=== PATIENT | male | born 1970 | race Caucasian/White ===

== ENCOUNTER 2018-04-26 16:31 | Outpatient (CLI) | payer OTHER, SELFPAY ==
--- NOTE | 2018-04-26 16:56 | RAD ---
CHEST TWO VIEWS: 04/26/18 HISTORY: Dyspnea. Cough and congestion. FINDINGS: The cardiac silhouette is enlarged. Pulmonary vasculature upper limits of normal. Mediastinum midline . No lobar consolidation or evidence of pneumothorax. IMPRESSION: Cardiomegaly. Borderline pulmonary vascular congestion. POS: [facility]
== END 2018-04-26 16:32 | disposition home or self-care (01) ==
LOC: MADRAD 16:31
PROVIDERS: ATTEND Family Medicine
DX: J45.909 Unspecified asthma, uncomplicated (principal); I51.7 Cardiomegaly; R09.89 Other specified symptoms and signs involving the circulatory and respiratory systems
CPT/HCPCS: 71046

== ENCOUNTER 2020-08-31 19:22 | Emergency (ER) | payer SELFPAY ==
[~2020-08-31 19:22] MED LIST: Iopamidol 370 76% 100 ML VIAL ONE
[2020-08-31] MEDS ORDERED: Sodium Chloride 0.9% 1,000 ML ONE (20:13)
[2020-08-31] MEDS ORDERED: Pantoprazole 40 MG VIAL ONE (20:13)
[2020-08-31] MEDS ORDERED: Ondansetron PF 4 MG/2 ML Vial ONE (20:13)
[2020-08-31 20:15] LABS: Bilirubin Negative (Negative); Blood, Urine Negative (Negative); Clarity Clear (Clear); Glucose, Urine (Dipstick) Negative (Negative); Ketone, Urine Negative (Negative); Leukocyte Negative (Negative); Nitrite Negative (Negative); Protein, Urine (Dipstick) 100 mg/dL (Neg-Trace); Urobilinogen 0.2 mg/dL (Less than 2)
[2020-08-31 20:17] LABS: #Basophils 0.2 thou/uL (0.0-0.2); #Monocytes 1.4 thou/uL (0.11-0.59); #Neutrophils 12.3 thou/uL (1.40-6.50); %Basophils 1.2 % (0.0-1.0); %Eosinophils 0.2 % (0.0-10.0); %Lymphocytes 17.7 % (21.0-51.0); %Monocytes 8.1 % (0.0-10.0); %Neutrophils 72.9 % (42.0-75.0); Hemoglobin 12.5 g/dL (14.0-18.0); Mean Corpuscular Hemoglobin 28.8 pg (27.0-31.0); Mean Corpuscular Volume 92.9 fL (78.0-98.0); Mean Platelet Volume 6.4 fL (7.4-10.4); Platelet Count 355 thou/uL (130-400); RBC Distribution Width 13.4 % (11.5-14.5); Red Blood Cell (RBC) Count 4.35 mill/uL (4.70-6.10); White Blood Cell (WBC) Count 16.9 thou/uL (4.8-10.8)
--- NOTE | 2020-08-31 20:17 | RAD ---
RADIOGRAPH CHEST 1 VIEW: 08/31/20 at 8:09 p.m. HISTORY: 49-year-old male with chest pain. FINDINGS: There is cardiomegaly. There is no evidence of air space density, pulmonary edema, or pneumothorax. T he lateral costophrenic angles are sharp. IMPRESSION: 1) No acute pulmonary findings. 2) Cardiomegaly without congestive heart failure. [email or web address] [] POS: [facility]
[2020-08-31 20:18] LABS: Specific Gravity, Urine 1.028 (1.002-1.036)
[2020-08-31 20:20] LABS: RBC/HPF None Seen HPF (0-3); WBC/HPF 0-3 HPF (0-3)
[2020-08-31 20:21] LABS: Bacteria/HPF Rare-Few HPF (None Seen); Mucous/LPF 1+ LPF (<2+)
[2020-08-31 20:33] LABS: ALT (SGPT) 40 U/L (8-55); AST (SGOT) 32 U/L (5-34); Albumin 3.9 g/dL (3.5-5.0); Alkaline Phosphatase 49 U/L (40-110); Anion Gap 15 mmol/L (10-20); BUN (Urea Nitrogen) 24 mg/dL (8.9-20.6); Bilirubin, Total 0.9 mg/dL (0.2-1.2); CK (CPK) 296 U/L (30-200); Calc. Creatinine Clearance 0 mL/min (70-130); Calcium 8.8 mg/dL (7.8-10.44); Carbon Dioxide 24 mmol/L (22-29); Chloride 105 mmol/L (98-107); Estimated GFR-MDRD 53; Globulin 2.6 g/dL (2.4-3.5); Glucose 102 mg/dL (70-105); Lipase 79 U/L (8-78); Potassium 4.2 mmol/L (3.5-5.1); Protein, Total 6.5 g/dL (6.0-8.3); Sodium 140 mmol/L (136-145)
[2020-08-31 20:52] LABS: CKMB 3.2 ng/mL (0-6.6)
--- NOTE | 2020-08-31 21:20 | CT ---
CT ABDOMEN AND PELVIS WITH IV CONTRAST: 08/31/20 HISTORY: Abdominal pain. FINDINGS: The lung bases are unremarkable. The liver, spleen, pancreas, adrenal glands are normal. No calcifi ed gallstones are seen. There is a tiny nonobstructing right renal calculus. There are patchy areas of decreased attenuation in the left renal cortex with adjacent perinephric inflammatory changes. No hydroureteronephrosis see n on either side. No free air, free fluid or lymphadenopathy is seen in the abdomen or pelvis. The small bowel loops ar e not abnormally dilated. A normal appearing appendix is present. The aorta is of normal caliber. The re are degenerative changes in the spine. there are small bilateral fat containing inguinal hernia. IMPRESSION: 1. Findings are suggestive of left sided pyelonephritis. Correlation with urinalysis is recommen ded. A follow-up exam is recommended after a course of antibiotics to exclude underlying mass. 2. Nonobstructing tiny right renal calculus. POS: [facility]
[2020-08-31] MEDS ORDERED: Aspirin Chewable 81 MG TAB ONE (21:47)
[2020-08-31] MEDS ORDERED: cefTRIAXone\\ROCEPHIN 2 GM VIAL ONE (21:47)
[2020-08-31] MEDS ORDERED: Sodium Chloride 0.9% 100 ML ONE (21:47)
[2020-08-31 22:22] LABS: Troponin I 0.033 ng/mL (< 0.028)
== END 2020-08-31 23:41 | disposition home or self-care (01) ==
LOC: MADERS 19:22
DX: N12 Tubulo-interstitial nephritis, not specified as acute or chronic (principal); I50.9 Heart failure, unspecified; M10.9 Gout, unspecified
CPT/HCPCS: 71045; 74177; 80053; 81003; 81015; 82150; 82550; 82553; 83690; 84484; 85025; 86140; 93005; 96365; 96375; C9113; J0696; J2405; J3490; J7050; Q9967

== ENCOUNTER 2021-01-08 17:49 | Emergency (ER) | payer OTHER, SELFPAY ==
[2021-01-08 18:44] LABS: #Basophils 0.2 thou/uL (0.0-0.2); #Eosinphils 0.1 thou/uL (0.0-0.7); #Lymphocytes 1.7 thou/uL (1.20-3.40); #Monocytes 0.8 thou/uL (0.11-0.59); #Neutrophils 4.9 thou/uL (1.40-6.50); %Basophils 2.5 % (0.0-1.0); %Eosinophils 1.3 % (0.0-10.0); %Lymphocytes 22.8 % (21.0-51.0); %Monocytes 9.8 % (0.0-10.0); %Neutrophils 63.7 % (42.0-75.0); Hemoglobin 12.2 g/dL (14.0-18.0); Mean Corpuscular HGB CONC 31.4 g/dL (32.0-36.0); Mean Corpuscular Hemoglobin 28.4 pg (27.0-31.0); Mean Corpuscular Volume 90.5 fL (78.0-98.0); Platelet Count 359 thou/uL (130-400); RBC Distribution Width 14.5 % (11.5-14.5); White Blood Cell (WBC) Count 7.6 thou/uL (4.8-10.8)
[2021-01-08 19:05] LABS: ALT (SGPT) 18 U/L (8-55); AST (SGOT) 20 U/L (5-34); Albumin 3.9 g/dL (3.5-5.0); Alkaline Phosphatase 52 U/L (40-110); Anion Gap 13 mmol/L (10-20); BUN (Urea Nitrogen) 17 mg/dL (8.4-25.7); Bilirubin, Total 1.7 mg/dL (0.2-1.2); CK (CPK) 528 U/L (30-200); Calc. Creatinine Clearance 0 mL/min (70-130); Calcium 8.5 mg/dL (7.8-10.44); Carbon Dioxide 23 mmol/L (22-29); Chloride 110 mmol/L (98-107); Globulin 2.9 g/dL (2.4-3.5); Glucose 76 mg/dL (70-105); Lipase 43 U/L (8-78); Potassium 4.5 mmol/L (3.5-5.1); Protein, Total 6.8 g/dL (6.0-8.3); Sodium 141 mmol/L (136-145)
[2021-01-08 19:25] LABS: CKMB 3.6 ng/mL (0-6.6)
[2021-01-08 19:44] LABS: Bilirubin Small (Negative); Blood, Urine Negative (Negative); Clarity Slightly Cloudy (Clear); Glucose, Urine (Dipstick) Negative (Negative); Ketone, Urine Negative (Negative); Leukocyte Negative (Negative); Nitrite Negative (Negative); Protein, Urine (Dipstick) Trace mg/dL (Neg-Trace); Urobilinogen 0.2 mg/dL (Less than 2)
[2021-01-08 19:46] LABS: Specific Gravity, Urine 1.027 (1.002-1.036)
[2021-01-08] MEDS ORDERED: Lidocaine Viscous Sol 2% 15 ml UD Cup ONE (21:38)
[2021-01-08] MEDS ORDERED: Mag-Al Plus 1200 MG/1200 MG/120 MG/30 ML UDCUP ONE (21:38)
== END 2021-01-08 22:00 | disposition home or self-care (01) ==
LOC: MADERS 17:49
DX: R10.9 Unspecified abdominal pain (principal); R53.83 Other fatigue; R05 Cough; R06.00 Dyspnea, unspecified; R14.0 Abdominal distension (gaseous); M10.9 Gout, unspecified; I50.9 Heart failure, unspecified; J30.2 Other seasonal allergic rhinitis
CPT/HCPCS: 36415; 71045; 74177; 80053; 81003; 82550; 82553; 83690; 84484; 85025; 93005; 94760; 96372; J0500; Q9967

== ENCOUNTER 2023-02-24 18:21 | Outpatient (CLI) | payer OTHER | END 2023-02-24 18:22 | disposition home or self-care (01) | LOC: MADRAD 18:21 | PROVIDERS: ATTEND Nurse Practitioner Family | DX: S23.41XA Sprain of ribs, initial encounter (principal) ==

== ENCOUNTER 2024-08-05 18:14 | Emergency (ER) | payer OTHER, SELFPAY ==
[2024-08-05] MEDS ORDERED: Famotidine/PF 20 mg/2ml Vial ONE (18:31)
[2024-08-05] MEDS ORDERED: Ketorolac Tromethamine 30 MG (1 mL) VIAL ONE (18:31)
[2024-08-05] MEDS ORDERED: Loratadine 10 MG TAB ONE (18:31)
[2024-08-05] MEDS ORDERED: Acetaminophen 325 MG TAB ONE (18:31)
[2024-08-05] MEDS ORDERED: Boostrix 0.5 ML (Tdap) VIAL (>/=7 yrs of age) ONE (18:38)
== END 2024-08-05 19:14 | disposition home or self-care (01) ==
LOC: MADERS 18:14
DX: T63.441A Toxic effect of venom of bees, accidental (unintentional), initial encounter (principal); I11.0 Hypertensive heart disease with heart failure; I50.9 Heart failure, unspecified
CPT/HCPCS: 90471; 90715; 96374; 96375; J1885; J3490

== ENCOUNTER 2025-09-12 02:19 | Emergency (ER) | payer OTHER ==
[2025-09-12] MEDS ORDERED: Amoxicillin/Potassium Clav 875 MG TAB ONE (02:37)
[2025-09-12] MEDS ORDERED: Lidocaine 1% PF 5 ML VIAL ONE (02:37)
[2025-09-12] MEDS ORDERED: Lidocaine 1% w/Epinephrine 1:100K 20 ML VIAL ONE (02:38)
== END 2025-09-12 03:02 | disposition home or self-care (01) ==
LOC: MADERS 02:19
DX: K08.89 Other specified disorders of teeth and supporting structures (principal); I48.91 Unspecified atrial fibrillation; I11.0 Hypertensive heart disease with heart failure; I50.9 Heart failure, unspecified
CPT/HCPCS: 41800; J0665